=== PATIENT | female | born 1955 | race Caucasian/White ===

== ENCOUNTER 2017-07-24 22:36 | Emergency (ER) | payer BC, OTHER ==
[~2017-07-24] VITALS: Ht 170.2 cm; Wt 64.0 kg
--- NOTE | 2017-07-24 22:40 | NUR ---
Pt ambulated to ER with steady gait, c/o chestpain x 2 days, nonradiating, 07/05, worsens when coughing and when just sitting. Denies shortness of breath.
--- NOTE | 2017-07-24 22:52 | NUR ---
Dr. Cunningham at bedside for MSE.
[2017-07-24] MEDS ORDERED: ASPIRIN 325 MG TABLET PO ONE (23:00)
[2017-07-24] MEDS ORDERED: IV NORMAL SALINE 500 ML BAG IV ONE (23:00)
[2017-07-24] MEDS ORDERED: NITROGLYCERIN 0.4 MG/TAB BOTTLE SL ONE ×2 (23:00→23:04)
[2017-07-24] MEDS ORDERED: ASPIRIN 325 MG TABLET ONE (23:05)
--- NOTE | 2017-07-24 23:10 | NUR ---
After receiving nitroglycerin 5 min ago, pt states pain a little less now 06/05. MD notified. Administered another tablet of nitroglycerin.
[2017-07-24] MEDS ORDERED: BISO5TAB2 PO (23:12)
--- NOTE | 2017-07-24 23:20 | NUR ---
Pt states chest pain about the same 06/05. Rechecked blood pressure, decreased to 128/71. No acute signs of distress.
[2017-07-24 23:28] LABS: CREATININE 0.8 mg/dL (0.6-1.3); POTASSIUM 3.5 mmol/L (3.5-5.1)
--- NOTE | 2017-07-24 23:28 | NUR ---
Xray at bedside.
[2017-07-24 23:30] LABS: BASOPHILS # (AUTO) 0.1 K/uL (0.0-8.0); BASOPHILS % (AUTO) 0.5 % (0.0-2.0); EOSINOPHILS % (AUTO) 0.2 % (0.0-7.0); HEMATOCRIT 40.3 % (31.2-41.9); HEMOGLOBIN 13.7 g/dL (10.9-14.3); LYMPHOCYTES # (AUTO) 1.2 K/uL (20.0-40.0); LYMPHOCYTES % (AUTO) 11.7 % (20.5-51.5); MEAN CORPUSCULAR HEMOGLOBIN 27.8 uug (24.7-32.8); MEAN CORPUSCULAR HGB CONC 34 g/dL (32.3-35.6); MEAN CORPUSCULAR VOLUME 81.8 fL (75.5-95.3); MONOCYTES # (AUTO) 1.1 K/uL (2.0-10.0); NEUTROPHILS # (AUTO) 7.5 K/uL (1.8-8.9); NEUTROPHILS % (AUTO) 76.6 % (38.5-71.5); PLATELET COUNT (AUTO) 248 K/uL (179-408); RED BLOOD CELL COUNT(AUTO) 4.92 MIL/uL (3.63-4.92); WHITE BLOOD COUNT (AUTO) 9.9 K/uL (3.8-11.8)
[2017-07-24 23:45] LABS: BILIRUBIN,DIRECT 0.1 mg/dL (0.0-0.2); BILIRUBIN,TOTAL 0.5 mg/dL (0.2-1.0); TOTAL PROTEIN, SERUM 7.8 g/dL (6.4-8.2)
[2017-07-24] MEDS ORDERED: LEVOFLOXACIN 750 MG TABLET ONE (23:56)
[2017-07-25] MEDS ORDERED: LEVOFLOXACIN 750 MG TABLET PO ONE
--- NOTE | 2017-07-25 00:03 | NUR ---
Patient discharged to home in stable conditon. Written and verbal after care instructions given. Patient verbalizes understanding of instructions. Patient ambulated out of ER with steady gait, no acute signs of distress, VSS, all belongings taken, IV site discontinued.
[2017-07-25 00:04] VITALS: BP 148/70
== END 2017-07-25 00:05 | disposition home or self-care (01) ==
LOC: ER 22:38
DX: J06.9 Acute upper respiratory infection, unspecified (principal); I10 Essential (primary) hypertension; Z79.899 Other long term (current) drug therapy
CPT/HCPCS: 36415; 70030-TC; 71045; 85025; 85730; 93005; A4663; J7040

== ENCOUNTER 2023-07-26 20:27 | Inpatient (IN) | payer MEDICARE, BC ==
[~2023-07-26] VITALS: Ht 170.2 cm; Wt 64.4 kg
[~2023-07-26 20:27] MED LIST: BISO5TAB20 PO
[2023-07-26] MEDS: HYDROMORPHONE 1 MG/1 ML DISP.SYRIN IM ONE (21:18)
[2023-07-26] MEDS: ONDANSETRON ODT 4 MG TAB.RAPDIS SL ONE (21:18)
[2023-07-26] MEDS ORDERED: ONDANSETRON ODT 4 MG TAB.RAPDIS ONE (21:19)
[2023-07-26] MEDS ORDERED: HYDROMORPHONE 1 MG/1 ML DISP.SYRIN ONE (21:20)
[2023-07-26] MEDS ORDERED: BISO5TAB21 PO (22:42)
[2023-07-26] MEDS ORDERED: VALS80TA2 PO (22:42)
[2023-07-26 22:56] LABS: BASOPHILS # (AUTO) 0.1 K/UL (0.0-0.2); EOSINOPHILS # (AUTO) 0.1 K/uL (0.0-0.7); EOSINOPHILS % (AUTO) 1.3 % (0.0-7.0); HEMATOCRIT 38.8 % (31.2-41.9); HEMOGLOBIN 12.6 g/dL (10.9-14.3); LYMPHOCYTES # (AUTO) 1.5 K/uL (0.8-4.8); MEAN CORPUSCULAR HEMOGLOBIN 26.8 uug (24.7-32.8); MEAN CORPUSCULAR HGB CONC 33 g/dL (32.3-35.6); MEAN CORPUSCULAR VOLUME 82.2 fL (75.5-95.3); MONOCYTES # (AUTO) 0.8 K/uL (0.1-1.30); MONOCYTES % (AUTO) 8.2 % (0.0-11.0); NEUTROPHILS # (AUTO) 7.1 K/uL (1.8-8.9); NEUTROPHILS % (AUTO) 73.5 % (38.5-71.5); PLATELET COUNT (AUTO) 297 K/uL (179-408); RED BLOOD CELL COUNT(AUTO) 4.72 MIL/uL (3.63-4.92); RED CELL DISTRIBUTION WIDTH 15.6 % (12.3-17.7); WHITE BLOOD COUNT (AUTO) 9.7 K/uL (3.8-11.8)
[2023-07-26 22:58] LABS: DIFFERENTIAL COMMENT 1
[2023-07-26] MEDS ORDERED: ENALAPRILAT DIHYDRATE 1.25 MG/1 ML VIAL IV PRN (23:00)
[2023-07-26] MEDS ORDERED: IV D5W-0.45% NS +20 KCL 1,000 ML IV ONE (23:00)
[2023-07-26 23:05] LABS: CALCIUM 9.3 mg/dL (8.5-10.1); CREATININE 0.8 mg/dL (0.6-1.3); POTASSIUM 4.4 mmol/L (3.5-5.1)
[2023-07-26 23:11] LABS: ALBUMIN 3.7 g/dL (3.4-5.0); BILIRUBIN,DIRECT 0.1 mg/dL (0.0-0.2); BILIRUBIN,TOTAL 0.4 mg/dL (0.2-1.0); TOTAL PROTEIN, SERUM 7.3 g/dL (6.4-8.2)
[2023-07-27 00:22] LABS: *BILIRUBIN,URIN NEGATIVE (NEGATIVE); *CLARITY,URINE CLEAR (CLEAR); *COLOR,URINE YELLOW (YELLOW); *KETONES,URINE TRACE (NEGATIVE); *PROTEIN,URINE NEGATIVE (NEGATIVE); *UROBILINOGEN,URINE 0.2 E.U./dl (NORMAL); LEUKOCYTE ESTERASE ,URINE TRACE (NEGATIVE); NITRITE, URINE NEGATIVE (NEGATIVE); PH,URINE 5.5 (5.0-8.0); UGLUCOSE NEGATIVE (NEGATIVE)
[2023-07-27 00:24] LABS: *BLOOD, URINE TRACE (NEGATIVE)
[2023-07-27 01:39] LABS: BACTERIA,URINE MODERATE /HPF (NONE SEEN); SQUAMOUS EPITHELIAL CELL,UR FEW /HPF (NONE SEEN)
[2023-07-27] MEDS: IV D5 1/2 NS 1000 ML 1,000 ML IV PRN (02:08)
[2023-07-27 03:00] VITALS: BP 134/60; TEMP 97.7; O2SAT 98
[2023-07-27 05:19] LABS: BASOPHILS # (AUTO) 0.1 K/UL (0.0-0.2); BASOPHILS % (AUTO) 0.8 % (0.0-2.0); EOSINOPHILS # (AUTO) 0.2 K/uL (0.0-0.7); EOSINOPHILS % (AUTO) 2.2 % (0.0-7.0); HEMATOCRIT 35.4 % (31.2-41.9); HEMOGLOBIN 11.7 g/dL (10.9-14.3); LYMPHOCYTES # (AUTO) 1.3 K/uL (0.8-4.8); LYMPHOCYTES % (AUTO) 17.4 % (20.5-51.5); MEAN CORPUSCULAR HEMOGLOBIN 27.3 uug (24.7-32.8); MEAN CORPUSCULAR HGB CONC 33 g/dL (32.3-35.6); MEAN CORPUSCULAR VOLUME 82.7 fL (75.5-95.3); MONOCYTES # (AUTO) 0.8 K/uL (0.1-1.30); MONOCYTES % (AUTO) 11.2 % (0.0-11.0); NEUTROPHILS # (AUTO) 5.1 K/uL (1.8-8.9); NEUTROPHILS % (AUTO) 68.4 % (38.5-71.5); PLATELET COUNT (AUTO) 233 K/uL (179-408); RED BLOOD CELL COUNT(AUTO) 4.28 MIL/uL (3.63-4.92); RED CELL DISTRIBUTION WIDTH 15.5 % (12.3-17.7); WHITE BLOOD COUNT (AUTO) 7.4 K/uL (3.8-11.8)
[2023-07-27 05:31] LABS: DIFFERENTIAL COMMENT 1
[2023-07-27 05:37] LABS: IRON, SERUM 29 ug/dL (50-175)
[2023-07-27 05:42] LABS: ALANINE AMINOTRANSFERASE 22 U/L (14-59); ALBUMIN 3.2 g/dL (3.4-5.0); ALKALINE PHOSPHATASE 84 U/L (50-136); ASPARTATE AMINOTRANSFERASE < 5 U/L (15-37); BILIRUBIN,TOTAL 0.3 mg/dL (0.2-1.0); CARBON DIOXIDE 25 mmol/L (21-32); CHLORIDE 106 mmol/L (98-107); CHOLESTEROL 143 mg/dL (<200); CREATININE 0.6 mg/dL (0.6-1.3); GLUCOSE 106 mg/dL (74-106); HDL CHOLESTEROL 63 mg/dL (40-60); MAGNESIUM 1.9 mg/dL (1.8-2.4); NT-PRO BNP 100 pg/mL (0-125); PHOSPHOROUS 4.3 mg/dL (2.5-4.9); POTASSIUM 3.8 mmol/L (3.5-5.1); SODIUM SERUM 141 mmol/L (136-145); TOTAL PROTEIN, SERUM 6.3 g/dL (6.4-8.2); TRIGLYCERIDES 146 MG/DL (30-150); UREA NITROGEN, BLOOD 19 mg/dL (7-18)
[2023-07-27 05:43] LABS: THYROID STIMULATING HORMONE 3.827 mIU/mL (0.358-3.740)
[2023-07-27 06:51] VITALS: BP 121/49; TEMP 97.7; O2SAT 100
[2023-07-27] MEDS: PANTOPRAZOLE SODIUM 40 MG VIAL IV SCH (08:10)
[2023-07-27] MEDS: MORPHINE SULFATE 4 MG/1 ML DISP.SYRIN IV PRN (08:10)
[2023-07-27] MEDS: VALSARTAN 80 MG TABLET PO SCH (08:11)
[2023-07-27] MEDS: ONDANSETRON 4 MG/2 ML VIAL IV PRN (08:27)
[2023-07-27] MEDS: CEFTRIAXONE 1 G in IV DEXTROSE 5% 50 ML IV SCH (11:27)
[2023-07-27 11:59] VITALS: BP 129/60; TEMP 97.9; O2SAT 98
[2023-07-27] MEDS ORDERED: VANCOMYCIN 1000 MG VIAL ONE (12:31)
[2023-07-27] MEDS ORDERED: ROPIVACAINE HCL/PF 0.5% ( 5 MG/ML ) , 20 ML VIAL ONE (12:31)
[2023-07-27] MEDS ORDERED: PROPOFOL 200 MG/20 ML BOTTLE ONE (14:00)
[2023-07-27] MEDS ORDERED: FENTANYL CITRATE 100 MCG/2 ML AMPUL ONE (14:29)
[2023-07-27] MEDS ORDERED: FAMOTIDINE. 20 MG/2 ML VIAL IV ONE (14:29)
[2023-07-27] MEDS ORDERED: MIDAZOLAM HCL 2 MG/2 ML VIAL ONE (14:29)
[2023-07-27] MEDS ORDERED: ALBUMIN HUMAN 5% 250 ML ONE (14:29)
[2023-07-27] MEDS: PANTOPRAZOLE SODIUM IV 80 MG in IV DEXTROSE 5% 500 ML IV ONE (14:45)
[2023-07-27] MEDS: SCOPOLAMINE PATCH 1 MG/72 HRS PATCH TD ONE (14:45)
[2023-07-27] MEDS ORDERED: MEPERIDINE 25 MG/1 ML DISP.SYRIN ONE (16:12)
[2023-07-27 16:30] LABS: CALCIUM 8.1 mg/dL (8.5-10.1); CREATININE 0.7 mg/dL (0.6-1.3); MAGNESIUM 1.8 mg/dL (1.8-2.4); POTASSIUM 4.3 mmol/L (3.5-5.1)
[2023-07-27] MEDS: MAGNESIUM SULFATE/D5W 100 ML IV SCH (17:35)
[2023-07-27 17:40] VITALS: BP 103/67; TEMP 97.7; O2SAT 100
[2023-07-27] MEDS: IV D5W-0.45% NS +20 KCL 1,000 ML IV PRN (17:47)
[2023-07-27 21:22] VITALS: BP 122/65; TEMP 98.8; O2SAT 96
[2023-07-27 21:33] VITALS: O2SAT 96
[2023-07-27] MEDS: METOPROLOL SUCCINATE XL 50 MG TAB.SR.24H PO SCH (21:37)
[2023-07-28] VITALS (7 sets, daily range): BP systolic 105–139; BP diastolic 49–86; TEMP 97.3–98.7; O2SAT 94–97
[2023-07-28] MEDS: MORPHINE SULFATE 4 MG/1 ML DISP.SYRIN IV PRN (00:38)
[2023-07-28 06:36] LABS: BASOPHILS % (AUTO) 0.2 % (0.0-2.0); HEMATOCRIT 34.2 % (31.2-41.9); HEMOGLOBIN 11.2 g/dL (10.9-14.3); LYMPHOCYTES # (AUTO) 0.7 K/uL (0.8-4.8); LYMPHOCYTES % (AUTO) 8.3 % (20.5-51.5); MEAN CORPUSCULAR HEMOGLOBIN 26.8 uug (24.7-32.8); MEAN CORPUSCULAR HGB CONC 33 g/dL (32.3-35.6); MEAN CORPUSCULAR VOLUME 81.9 fL (75.5-95.3); MONOCYTES # (AUTO) 0.7 K/uL (0.1-1.30); MONOCYTES % (AUTO) 7.8 % (0.0-11.0); NEUTROPHILS # (AUTO) 7.3 K/uL (1.8-8.9); NEUTROPHILS % (AUTO) 83.7 % (38.5-71.5); PLATELET COUNT (AUTO) 272 K/uL (179-408); RED BLOOD CELL COUNT(AUTO) 4.18 MIL/uL (3.63-4.92); RED CELL DISTRIBUTION WIDTH 15.7 % (12.3-17.7); WHITE BLOOD COUNT (AUTO) 8.7 K/uL (3.8-11.8)
[2023-07-28 06:41] LABS: DIFFERENTIAL COMMENT 1
[2023-07-28 06:45] LABS: CALCIUM 8.3 mg/dL (8.5-10.1); CREATININE 0.7 mg/dL (0.6-1.3); POTASSIUM 4.3 mmol/L (3.5-5.1)
[2023-07-28] MEDS: HYDROCODONE/APAP 10-325 MG TABLET PO PRN (08:25)
[2023-07-28] MEDS ORDERED: ROSU5TAB PO (13:59)
[2023-07-29 00:25] VITALS: O2SAT 95
[2023-07-29 05:00] VITALS: BP 125/60; TEMP 98; O2SAT 94
[2023-07-29 08:00] VITALS: BP 166/80; TEMP 97.8; O2SAT 98
[2023-07-29] MEDS ORDERED: HOME MED MISCELLANEOUS XX SCH (08:00)
[2023-07-29 12:00] VITALS: BP 137/59; TEMP 97.2; O2SAT 97
[2023-07-29 16:00] VITALS: BP 142/64; TEMP 98.7; O2SAT 97
[2023-07-29 19:30] VITALS: BP 139/68; TEMP 98; O2SAT 93
[2023-07-29] MEDS: MIRALAX 17 GM POWD.PACK PO SCH (19:38)
[2023-07-29] MEDS: ATORVASTATIN 10 MG TABLET PO SCH (20:28)
[2023-07-30 01:46] VITALS: O2SAT 94
[2023-07-30 05:56] VITALS: BP 140/67; TEMP 98.4; O2SAT 94
[2023-07-30] MEDS: PANTOPRAZOLE SODIUM 40 MG TABLET.DR PO SCH (06:30)
[2023-07-30] MEDS: CEphaleXIN 500 MG CAPSULE PO SCH (08:42)
[2023-07-30 11:10] VITALS: BP 140/56; TEMP 99.2; O2SAT 94
[2023-07-30 15:51] VITALS: BP 139/74; TEMP 98.7; O2SAT 94
[2023-07-30] MEDS: ACETAMINOPHEN 650 MG SUPP.RECT RC PRN (20:10)
[2023-07-30 21:35] VITALS: BP 129/66; TEMP 100.3; O2SAT 95
[2023-07-31 05:21] VITALS: BP 130/68; TEMP 98.6; O2SAT 96
[2023-07-31 10:00] VITALS: BP 118/59; TEMP 97.6; O2SAT 97
[2023-07-31 11:22] LABS: BASOPHILS % (AUTO) 0.7 % (0.0-2.0); DIFFERENTIAL COMMENT 0; EOSINOPHILS # (AUTO) 0.1 K/uL (0.0-0.7); EOSINOPHILS % (AUTO) 2.2 % (0.0-7.0); HEMATOCRIT 36.5 % (31.2-41.9); HEMOGLOBIN 11.9 g/dL (10.9-14.3); LYMPHOCYTES # (AUTO) 0.9 K/uL (0.8-4.8); LYMPHOCYTES % (AUTO) 13.2 % (20.5-51.5); MEAN CORPUSCULAR HEMOGLOBIN 26.4 uug (24.7-32.8); MEAN CORPUSCULAR HGB CONC 33 g/dL (32.3-35.6); MONOCYTES # (AUTO) 0.9 K/uL (0.1-1.30); MONOCYTES % (AUTO) 13.2 % (0.0-11.0); NEUTROPHILS # (AUTO) 4.6 K/uL (1.8-8.9); NEUTROPHILS % (AUTO) 70.7 % (38.5-71.5); PLATELET COUNT (AUTO) 274 K/uL (179-408); RED CELL DISTRIBUTION WIDTH 15.5 % (12.3-17.7); WHITE BLOOD COUNT (AUTO) 6.5 K/uL (3.8-11.8)
[2023-07-31 11:40] VITALS: BP 118/59; TEMP 97.6; O2SAT 97
[2023-07-31 16:00] VITALS: BP 118/59; TEMP 97.6; O2SAT 97
[2023-07-31 20:55] VITALS: BP 117/52; TEMP 99.3; O2SAT 93
[2023-08-01 06:31] VITALS: BP 108/55; TEMP 98.5; O2SAT 95
[2023-08-01] MEDS ORDERED: ACET650S13 RC (10:30)
[2023-08-01] MEDS ORDERED: HYDR-3980 PO (10:30)
[2023-08-01] MEDS ORDERED: CEPH500C2 PO (10:30)
[2023-08-01 12:03] VITALS: BP 131/77; TEMP 98.8; O2SAT 96
== END 2023-08-01 13:15 | disposition home health service (06) | DRG 516 ==
LOC: ER 20:30 → MEDSURG3 22:37
PROVIDERS: ADMIT Internal Medicine; ATTEND Nurse Practitioner Acute Care
PROC: 0QSF04Z Reposition Left Patella with Internal Fixation Device, Open Approach (ICD-10-PCS; principal; 2023-07-27)
DX: S82.032A Displaced transverse fracture of left patella, initial encounter for closed fracture (principal); N39.0 Urinary tract infection, site not specified; I10 Essential (primary) hypertension; E03.8 Other specified hypothyroidism; E78.5 Hyperlipidemia, unspecified; W01.0XXA Fall on same level from slipping, tripping and stumbling without subsequent striking against object, initial encounter; Y92.89 Other specified places as the place of occurrence of the external cause; B95.1 Streptococcus, group B, as the cause of diseases classified elsewhere; R31.9 Hematuria, unspecified; M19.031 Primary osteoarthritis, right wrist; Z87.42 Personal history of other diseases of the female genital tract; Z79.899 Other long term (current) drug therapy
CPT/HCPCS: 36415; 71045; 73070; 73110; 73551; 73560; 73630; 83550; 83735; 84100; 84443; 84484; 85025; 85730; 86850; 86900; 86901; 93005; A4649; C1713; C9113; G0378; J0690; J0696; J1100; J1170; J2175; J2250; J2270; J2405; J2765; J2795; J3010; J3370; J3475; J3490; J7060; J7120; P9045; Q0162